=== PATIENT | male | born 1945 | race Caucasian/White ===

== ENCOUNTER 2024-06-27 09:48 | Outpatient (CLI) | payer OTHER, SELFPAY ==
[2024-06-27 11:43] LABS: Appearance Urine Clear (Clear); Bilirubin Urine Negative (Negative); Blood Urine Negative (Negative); Color Urine Yellow (Yellow); Glucose Urine Negative (Negative); Ketones Urine Negative (Negative); Leukocyte Esterase Urine Negative (Negative); Nitrite Urine Negative (Negative); Protein Urine Negative (Negative); Specific Gravity Urine 1.015 (1.000-1.030); Urobilinogen Urine 0.2 (0.2-1.0); pH Urine 6.5 (5.0-8.5)
[2024-06-27 11:54] LABS: RBC Urine 0-2 (0-2); WBC Urine 0-2 (0-5)
[2024-06-27 11:58] LABS: Albumin* 4.4 g/dL (3.3-5.0); Chloride* 104 mmol/L (96-114)
[2024-06-27 11:59] LABS: Potassium* 4.4 mmol/L (3.6-5.1); Sodium* 140 mmol/L (135-149)
[2024-06-27 12:01] LABS: Anion Gap 9 mEq/L (7-15); Aspartate Amino Transferase* 22 U/L (12-35); Bilirubin Total* 0.6 mg/dL (0.1-1.5); Carbon Dioxide* 27 mmol/L (20-32); Creatinine* 1.1 mg/dL (0.5-1.5); Estimated Glomerular Filt Rate 69 ml/min; Total Protein* 7.3 g/dL (6.0-8.3)
[2024-06-27 12:02] LABS: Alanine Aminotransferase* 18 U/L (4-50); Alkaline Phosphatase* 66 U/L (40-150); Blood Urea Nitrogen* 23 mg/dL (7-30); Calcium* 9.4 mg/dL (8.4-10.6); Glucose* 93 mg/dL (60-115)
== END 2024-06-27 09:49 | disposition home or self-care (01) ==
PROVIDERS: Visit Provider Chiropractor
DX: R06.02 Shortness of breath (principal); I51.7 Cardiomegaly; E11.9 Type 2 diabetes mellitus without complications
CPT/HCPCS: 36415; 80053; 81001; 93306